=== PATIENT | female | born 1960 | race Caucasian/White ===

== ENCOUNTER 2019-05-24 16:06 | Outpatient (CLI) | payer BC ==
--- NOTE | 2019-05-24 16:44 | RAD ---
Exam:Left knee 4 views HISTORY: Arthritis. Pain COMPARISON: None FINDINGS: Mild to moderate degenerative change of the medial compartment. Mild to moderate degenerati ve change of patellofemoral compartment. No significant joint effusion. No fracture. No malalignment. IMPRESSION: Bicompartmental degenerative change
== END 2019-05-24 16:07 | disposition home or self-care (01) ==
LOC: BICRAD 16:06
PROVIDERS: ATTEND Specialist
DX: M25.562 Pain in left knee (principal); M17.12 Unilateral primary osteoarthritis, left knee

== ENCOUNTER 2019-10-26 09:08 | Outpatient (CLI) | payer BC ==
--- NOTE | 2019-10-26 09:32 | RAD ---
EXAM: XR Lumbar Spine 2 Or 3 View PROVIDED CLINICAL HISTORY: Low back COMPARISON: None FINDINGS: There are 5 nonrib-bearing lumbar-type vertebral bodies with transitional vertebra at L5 with partial sacralization of the right aspect of the L5 vertebral body with pseudoarticulation with the sacrum. There is an area of increased density seen overlying the right sacral ala which is thought to be related to prominent degenerative changes. Multilevel facet hypertrophic changes are seen with scattered osteophytes involving the lumbar spine. There is grade 1 anterolisthesis of L4 on L5. There is narrowing of the intervertebral disc spaces at the L3-4, L4-5, and L5-S1 levels. The vertebral body heights are within normal limits. There is question of area of sclerosis involving the right sac rum Vascular calcification are seen in the abdominal aorta and involving the iliac arteries. IMPRESSION: 1. Degenerative changes in the lumbar spine. 2. Grade 1 anterolisthesis of L4 on L5 likely due to prominent facet hypertrophic changes. 3. Transitional vertebra lumbosacral junction with partial sacralization the right aspect of the L5 v ertebral body and what appears to be pseudoarticulation of the partially sacralized L5 vertebral body with the sacrum on the right. There is a prominent area of sclerosis seen overlying the region o f the right sacral ala which is thought to be on the basis of degenerative changes. 4. MRI lumbar spine may be helpful for further evaluation. 5. Vascular calcifications.
== END 2019-10-26 09:09 | disposition home or self-care (01) ==
LOC: BICRAD 09:08
PROVIDERS: ATTEND Specialist
DX: M54.5 Low back pain (principal); M47.816 Spondylosis without myelopathy or radiculopathy, lumbar region; M43.16 Spondylolisthesis, lumbar region; G95.89 Other specified diseases of spinal cord; I70.90 Unspecified atherosclerosis
CPT/HCPCS: 72100

== ENCOUNTER 2019-11-04 09:30 | Outpatient (CLI) | payer BC ==
--- NOTE | 2019-11-04 12:06 | MRI ---
MR the lumbar spine without contrast INDICATION: Low back pain with history of fall from horse at the age of 28 now with radiculopathy sym ptoms to both legs COMPARISON: Lumbar spine radiograph dated October 26, 2019 TECHNIQUE: Multiplanar multisequence MR images were obtained of lumbar spine without IV contrast. FINDINGS: Bone marrow: There is Modic endplate degenerative changes seen at T11-T12 and T10-T11 Distal spinal cord and conus: Normal. The conus seen to terminate at L1. Visualized retroperitoneum and paraspinal soft tissues: Normal. Vertebral levels: L5-S1: There is partial sacralization of L5. There is no appreciable central canal or neural foramina l narrowing. L4-5: There is grade 1 anterolisthesis of L4 and L5. There is a mild broad-based bulge. There is adva nced facet osteoarthrosis. There is ligament flavum hypertrophy. There is mild central canal narrowing at this level. L3-4: There is a broad-based bulge with facet hypertrophy inducing mild central canal narrowing. L2-3: There is mild facet joint degenerative change. L1-L2: No appreciable central canal or neuroforaminal narrowing. T12-L1: No appreciable central canal or neuroforaminal narrowing. IMPRESSION: 1. Transitional lumbosacral vertebra. There is partial sacralization of L5. 2. Mild grade 1 anterolisthesis of L4 on L5. Mild central canal narrowing at L4-L5 due to a broad-bas ed pseudobulge, facet degenerative change and ligamentum flavum hypertrophy.
== END 2019-11-04 09:31 | disposition home or self-care (01) ==
LOC: BICMRI 09:30
PROVIDERS: ATTEND Specialist
DX: M54.5 Low back pain (principal); M43.16 Spondylolisthesis, lumbar region; M48.061 Spinal stenosis, lumbar region without neurogenic claudication; M47.816 Spondylosis without myelopathy or radiculopathy, lumbar region; M51.86 Other intervertebral disc disorders, lumbar region; M46.06 Spinal enthesopathy, lumbar region; Q76.49 Other congenital malformations of spine, not associated with scoliosis
CPT/HCPCS: 72148

== ENCOUNTER 2019-12-07 08:46 | Outpatient (CLI) | payer BC ==
--- NOTE | 2019-12-07 09:26 | RAD ---
EXAM: Lumbar spine 7 views including flexion and extension standing views HISTORY: Lumbar spondylolisthesis COMPARISON: 10/26/2019 FINDINGS: Grade 1/2 anterolisthesis of L4 and L5 marked worsening with flexion relative to 2 extension evidence for abnormal translation and overall instability at this level. No evidence for acute fracture or dislocation involving the visualized spine. There are disc osteophytosis and facet arthrosis changes. No evidence for a bone lesion. IMPRESSION: Spondylosis. Overall instability at L4-L5 with marked worsening of anterolisthesis of L4 on L5 with flexion relati ve distention evidence for severe abnormal translation.
== END 2019-12-07 08:47 | disposition home or self-care (01) ==
LOC: BICRAD 08:46
PROVIDERS: ATTEND Anesthesiology Pain Medicine
DX: M43.16 Spondylolisthesis, lumbar region (principal); M47.816 Spondylosis without myelopathy or radiculopathy, lumbar region
CPT/HCPCS: 72100

== ENCOUNTER 2020-08-22 11:28 | Outpatient (CLI) | payer OTHER ==
--- NOTE | 2020-08-22 14:11 | RAD ---
2 VIEWS LEFT KNEE: Date: 08/22/2020 HISTORY: Arthritis, pain. FINDINGS: There is prominent patellofemoral joint space narrowing with posterior patellar osteophyte formation. There is severe medial compartment narrowing and mild lateral compartment narrowing. There is osteop hyte formation of the medial and lateral femoral condyle and tibial plateau. No acute fracture or dis location. IMPRESSION: Prominent multicompartment degenerative joint disease. No acute fracture or dislocation. POS: [facility]
== END 2020-08-22 11:29 | disposition home or self-care (01) ==
LOC: BICRAD 11:28
PROVIDERS: ATTEND Internal Medicine
DX: Z02.71 Encounter for disability determination (principal); M17.12 Unilateral primary osteoarthritis, left knee